=== PATIENT | female | born 1980 | race Two or more races ===

== ENCOUNTER 2020-03-21 20:21 | Emergency (ER) | payer OTHER ==
[~2020-03-21] VITALS: Ht 170.2 cm; Wt 74.8 kg
[2020-03-21 20:57] LABS: BASOPHILS # (AUTO) 0.1 K/uL (0.0-8.0); BASOPHILS % (AUTO) 0.6 % (0.0-2.0); EOSINOPHILS # (AUTO) 0.1 K/uL (0.0-0.7); EOSINOPHILS % (AUTO) 1.2 % (0.0-7.0); HEMATOCRIT 38.9 % (31.2-41.9); LYMPHOCYTES # (AUTO) 2.6 K/uL (20.0-40.0); LYMPHOCYTES % (AUTO) 30.2 % (20.5-51.5); MEAN CORPUSCULAR HGB CONC 34 g/dL (32.3-35.6); MEAN CORPUSCULAR VOLUME 83.6 fL (75.5-95.3); MONOCYTES # (AUTO) 0.6 K/uL (2.0-10.0); MONOCYTES % (AUTO) 6.5 % (0.0-11.0); NEUTROPHILS # (AUTO) 5.2 K/uL (1.8-8.9); NEUTROPHILS % (AUTO) 61.5 % (38.5-71.5); PLATELET COUNT (AUTO) 219 K/uL (179-408); RED BLOOD CELL COUNT(AUTO) 4.65 MIL/uL (3.63-4.92); WHITE BLOOD COUNT (AUTO) 8.5 K/uL (3.8-11.8)
[2020-03-21 21:02] LABS: POTASSIUM 3.3 mmol/L (3.5-5.1)
[2020-03-21 21:06] LABS: ABG BASE EXCESS -0.1 mmol/L; ABG HCO3 23.7 mmol/L; ABG PCO2 35.8 mmHg (35.0-45.0); ABG PH 7.438 (7.350-7.450); ABG SITE RIGHT RADIAL; ABG TOTAL HEMOGLOBIN 13.4 G/dL (12.0-16.0); COHb 3.3 % (0.5-1.5); MetHb 0.3 % (0.0-1.5); O2Hb 93.4 % (94.0-97.0); VENT MODE Room Air
--- NOTE | 2020-03-21 21:07 | NUR ---
Patient is a 39yo female complaining of SOB. Patient is A&Ox3, VS WNL (B/P=113/73 HR=88 RESP=22 SpO2=97%) Patient ambulates with steady gate, and is able to verbalize all needs. Bed is locked and in lowest position with 2/2 siderails up for safety. Patient resting comfortably. Will continue to monitor closely.
[2020-03-21 21:14] LABS: BILIRUBIN,TOTAL 0.3 mg/dL (0.2-1.0); TOTAL PROTEIN, SERUM 7.6 g/dL (6.4-8.2)
[2020-03-21] MEDS ORDERED: ASPIRIN 325 MG TABLET ONE (21:42)
[2020-03-21] MEDS ORDERED: ASPIRIN 325 MG TABLET PO ONE (21:45)
[2020-03-21] MEDS ORDERED: IBUPROFEN 800 MG TABLET ONE (22:23)
[2020-03-21] MEDS ORDERED: ACETAMINOPHEN ES 500 MG TABLET PO ONE (22:30)
[2020-03-21] MEDS ORDERED: IBUPROFEN 800 MG TABLET PO ONE (22:30)
[2020-03-21] MEDS ORDERED: ACETAMINOPHEN ES 500 MG TABLET ONE (23:15)
--- NOTE | 2020-03-22 02:29 | NUR ---
Patient discharged to home in stable condition. Written and verbal after care instructions given. Patient verbalizes understanding of instructions. Stressed follow up or return to ER for worsening s/s.
== END 2020-03-22 02:30 | disposition home or self-care (01) ==
LOC: ER 20:25
DX: U07.1 COVID-19 (principal); R06.02 Shortness of breath; R07.9 Chest pain, unspecified; R94.31 Abnormal electrocardiogram [ECG] [EKG]; E87.6 Hypokalemia
CPT/HCPCS: 0099U; 36415; 36600; 71045; 80053; 82550; 82728; 83605; 83615; 83880; 84145; 84484 ×2; 84702; 85025; 85379; 85730; 86140; 87040; 87400; 93005 ×2; 99285; C9803; U0003; 70030-TC; A4663; A9150